=== PATIENT | female | born 1945 | race Caucasian/White ===

== ENCOUNTER 2018-06-11 07:56 | Day surgery (SDC) | payer MEDICARE ==
[~2018-06-11 07:56] MED LIST: DEXAMETHASONE SOD PHOSPHATE 10 MG/ML 1 ML VIAL IV ONE; HYDROmorphone 0.5 MG/0.5 ML SYRINGE IVP PRN; MIDAZOLAM 2 MG/2 ML VIAL IV PRN; ONDANSETRON 4 MG/2 ML VIAL IVP ONE; ceFAZolin IN SWFI 2 GM/20 ML SYRINGE IVP ONE
[2018-06-11] MEDS ORDERED: LIDOCAINE 1% 20 ML VIAL (10MG/ML) FOR IV START INTRADERMA ONE (09:30)
[2018-06-11] MEDS: LACTATED RINGERS 1,000 ML IV SCH ×2 (09:30→17:00)
[2018-06-11] MEDS ORDERED: MIDAZOLAM (PF) 2 MG/2 ML VIAL IVP ONE (11:15)
--- NOTE | 2018-06-11 11:39 | P.ONQ ---
Anesthesiology Proc Note - PNB - Peripheral Nerve Block Performed Left Adductor Canal Single Time Out Performed: Yes Procedure Start Time: 11:15 Procedure Stop Time: :17 Indication: Acute Post-Operative Pain, Analgesia, Requested by physician Sedation Type: Sedate with meaningful contact maintained Preparation: Sterile Prep Position: Supine Catheter: None Needle Types: On-Q, Touhy Needle Size: 100mm (4") Needle Gauge: 21 Technique: Ultrasound Injectate: Other (see comment) (0.5% bupivacaine with 1:200k epi 15cc) Adjunct: Epinephrine (see comment for dilution ratio) Blood Aspirated: No Pain Paresthesia on Injection Noted: No Resistance on Injection: Normal Events: Uneventful and Well Tolerated
--- NOTE | 2018-06-11 11:40 | P.ONQ ---
Anesthesiology Proc Note - PNB - Peripheral Nerve Block Performed Right Popliteal Single Time Out Performed: Yes Procedure Start Time: :18 Procedure Stop Time: : Indication: Acute Post-Operative Pain, Analgesia, Requested by physician Sedation Type: Sedate with meaningful contact maintained Preparation: Sterile Prep Position: Supine Catheter: None Needle Types: On-Q Needle Size: 50mm (2") Needle Gauge: 21 Technique: Ultrasound Injectate: Other (see comment) (0.5% bupivacaine with 1:200k epi 15cc) Adjunct: Epinephrine (see comment for dilution ratio) Blood Aspirated: No Pain Paresthesia on Injection Noted: No Resistance on Injection: Normal Events: Uneventful and Well Tolerated
--- NOTE | 2018-06-11 12:05 | P.HPOR ---
History of Present Illness H&P Date: 06/11/18 The patient is very pleasant 72-year-old female who presents today for elective left foot surgery after having failed a long course of nonsurgical treatment. Past Medical History Past Medical History: Osteoarthritis (OA), Thyroid Disorder Additional Past Medical History / Comment(s): 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, THYROID IRRADIATION WITH IODINE History of Any Multi-Drug Resistant Organisms: None Reported Past Surgical History: Bladder Surgery, Hysterectomy, Joint Replacement Additional Past Surgical History / Comment(s): RT KNEE REPLACEMENT, FIDE CATARACTS, TOTAL THYROIDECTOMY WITH IRRADIATION WITH IODINE, BLADDER SUSPENSION Past Anesthesia/Blood Transfusion Reactions: No Reported Reaction Smoking Status: Never smoker - Past Family History Sister(s) Family Medical History: Cancer Additional Family Medical History / Comment(s): BRAIN Medications and Allergies Home Medications Medication Instructions Recorded Confirmed Type Gabapentin [Neurontin] 100 mg PO DIRECTED PRN 06/06/18 06/11/18 History Levothyroxine Sodium [Synthroid] 200 mcg PO DAILY 06/06/18 06/11/18 History Multivitamins, Thera [Multivitamin 1 tab PO DAILY 06/06/18 06/06/18 History (formulary)] Allergies Allergy/AdvReac Type Severity Reaction Status Date / Time Sulfa (Sulfonamide Allergy Rash/Hives Verified 06/06/18 09:20 Antibiotics) Physical Examination A focused exam was conducted to the left foot. There is a severe hallux valgus and rigid second hammertoe. Pulses are palpable. The tips of the toe are warm and well perfused with brisk capillary refill. Assessment and Plan Plan: The patient is a very pleasant 73-year-old female who presents today for elective surgery on her foot. She has failed nonsurgical treatment and has requested surgery. She was cleared preoperatively.
[2018-06-11] MEDS ORDERED: NEOSTIGMINE 1 MG/ML 10 ML VIAL ONE (12:11)
[2018-06-11] MEDS ORDERED: LIDOCAINE 1% INJ 10MG/ML (20 ML MDV) ONE (12:11)
[2018-06-11] MEDS ORDERED: BUPIVACAIN-EPI 0.5%-1:200,000 30 ML VIAL ONE (12:11)
[2018-06-11] MEDS ORDERED: ROCURONIUM BROMIDE 10 MG/ML 10 ML VIAL IV ONE (12:11)
[2018-06-11] MEDS ORDERED: PHENYLEPHRINE-0.9% NACL SYG 1 MG/10 ML SYRINGE ONE (12:11)
[2018-06-11] MEDS ORDERED: GLYCOPYRROLATE 0.2 MG/ML 2 ML VIAL ONE (12:11)
[2018-06-11] MEDS ORDERED: MIDAZOLAM 2 MG/2 ML VIAL ONE (12:11)
[2018-06-11] MEDS ORDERED: PROPOFOL 10 MG/ML 20 ML VIAL IV ONE (12:11)
[2018-06-11] MEDS ORDERED: SUCCINYLCHOLINE CHLORIDE 100 MG/5 ML SYR IV ONE (12:11)
[2018-06-11] MEDS ORDERED: ePHEDrine SULFATE/0.9% NACL/PF 50 MG/5 ML SYRINGE IV ONE (12:11)
[2018-06-11] MEDS ORDERED: fentaNYL (PF) 50 MCG/ML 2 ML AMP ONE (12:11)
[2018-06-11] MEDS ORDERED: LACTATED RINGERS 1,000 ML IV ONE (13:16)
--- NOTE | 2018-06-11 14:15 | P.OP ---
Date of Procedure: 06/11/18 Preoperative Diagnosis: 1. Severe left hallux valgus deformity 2. Left rigid second hammertoe and dislocated second MTP joint Postoperative Diagnosis: Same Procedure(s) Performed: 1. Left first MTP arthrodesis 2. Repair of left dislocated second hammertoe with PIP resection arthroplasty, extensor tendon lengthening, and MTP capsulotomy 3. Application of short leg splint by physician, left ankle Anesthesia: BERRY, regional Surgeon: Kadeem De Leon [facility]: Anders Rodriguez Estimated Blood Loss (ml): 10 IV fluids (ml): 1,200 Pathology: none sent Condition: stable Disposition: PACU Indications for Procedure: The patient is very pleasant 73-year-old female with long-standing history of problems with her left foot. She has previously had several surgeries by another surgeon. She presented to see me with a severe left hallux valgus and chronically dislocated second MTP joint and rigid hammertoe. We discussed continued nonsurgical treatment versus surgery. The patient has failed over 6 months of nonsurgical treatment including activity modification, shoewear modification, orthotics, toe splints, and observation. She has requested surgery. We discussed 2 different surgical options. The first being a second toe amputation and the second reconstruction of the foot with a first MTP arthrodesis and correction of the left second hammertoe with the possibility of requiring a shortening metatarsal osteotomy. The patient requested salvage of the toe and reconstruction of the foot. We discussed potential risks and Patient's of surgery including but not limited to risk of anesthesia, superinfection, deep infection, delayed wound healing, some partial necrosis, nonunion of the fusion site, malunion the fusion site, recurrent deformity, chronic pain, chronic swelling, synthetic hardware, DVT, PE, other medical consultations, and possibly loss of life or limb. She threaded her verbal and written consent to go forward with surgery. Description of Procedure: The patient is independent operative holding and the correct left was marked with my initials. I really consent form with the patient and all of her questions were answered. A popliteal and saphenous nerve block was given by anesthesia. The patient was then brought back to the operating room pages position on the or table where general anesthetic and preoperative antibiotics were administered. A tourniquet was applied to the proximal aspect of the left leg. The right leg was secured with tape with foam and tape. The left leg was then prepped and draped in the standard sterile fashion. The leg was elevated, exsanguinated with an Esmarch bandage, and the tourniquet was inflated 250 mmHg. I began by performing a first MTP fusion. A longitudinal incision was made directly over the first MTP joint. The EHL tendon was lengthened with a Z- lengthening procedure to facilitate reduction of the MTP joint. The capsule was incised longitudinally and the joint was circumferentially exposed. A K wire was placed on the central aspect of the first metatarsal head. A concave reamer was used remove the articular cartilage down to subchondral bone. The K wire was withdrawn and the subchondral bone was perforated to facilitate fusion. A K wire was then placed on the central aspect of the proximal phalanx. A convex reamer was then used to remove the articular cartilage down to subchondral bone. The K wire was withdrawn and the subchondral bone was perforated to facilitate fusion. The joint was then irrigated and position for fusion. An acentrically placed K wire was placed across the joint holding it in slight valgus and dorsiflexion. The position of the joint was verified. A nonlocking 3.5 mm lag screw was placed from the base the proximal balance and the metatarsal head. A precontoured dorsal first MTP joint was placed. Nonlocking screws were placed proximally and distally holding the plate down to bone followed by locking screws. Attention was then turned to the second toe. A longitudinal incision was marked out over the dorsal aspect of the second toe. Skin incision was made with a scalpel. Dissection was carried down carefully to the subcu tissue with tenotomy scissors. The long extensor tendon was identified and sharply incised. The MTP capsule was circumferentially exposed. A McGlamry elevator was used to reduce the MTP joint. I was able to reduce the MTP joint with minimal tension by elected not to perform a metatarsal shortening osteotomy. The PIP joint was then exposed and the proximal phalanx was cut at the metaphyseal flare distally. A double-ended 0.0625 K wire was driven through the joint out the tip of the toe, the toe was reduced and the K wire was then driven through the proximal phalanx and across the MTP joint. The toe appeared straight. The wounds were then copiously irrigated and closed in layers. I verified that all instrument, sponge, and sharp counts were correct. A sterile dressing was applied and a well-padded bulky Joseph type splint was placed. The patient was then awoken from her anesthetic, transferred to a gurney, and brought to PACU without the procedure well. Anders Rodriguez PA-C was required as a skilled fitter's assistant for patient positioning, surgical exposure, retraction, placement of hardware, closure of wound, and application of splint. Plan: The patient was given the option of going home with her pain is controlled and she feels safe versus staying overnight for pain control, physical therapy evaluation, and a social work consultation to evaluate on whether or not she safe to go home. She is given strictly nonweightbearing on her operative extremity
[2018-06-11] MEDS ORDERED: HYDROmorphone 0.5 MG/0.5 ML SYRINGE IVP PRN ×3 (14:21)
[2018-06-11] MEDS ORDERED: SENNOSIDES-DOCUSATE SODIUM 1 EACH TAB PO PRN (14:21)
[2018-06-11] MEDS ORDERED: hydrOXYzine PAMOATE 25 MG CAP PO PRN (14:21)
[2018-06-11] MEDS ORDERED: ONDANSETRON 4 MG/2 ML VIAL IVP PRN (14:21)
--- NOTE | 2018-06-11 16:11 | FL ---
Fluoroscopy HISTORY: Open reduction internal fixation 14 seconds fluoroscopy time supplied to the referring clinician. 2 intraoperative C-arm images docum ent the procedure. See dictated report from orthopedic surgery.
[2018-06-11 16:20] VITALS: BMI 30.3
[2018-06-11 16:27] LABS: Basophils % (A) 0 %; Eosinophils % (A) 0 %; HCT 38.9 % (34.0-46.0); HGB 12.4 gm/dL (11.4-16.0); Lymphocytes # (A) 0.3 k/uL (1.0-4.8); Lymphocytes % (A) 5 %; MCH 28.5 pg (25.0-35.0); MCHC 31.9 g/dL (31.0-37.0); MCV 89.3 fL (80.0-100.0); Mean Platelet Volume 7.8; Monocytes # (A) 0.1 k/uL (0-1.0); Monocytes % (A) 2 %; Neutrophils # (A) 5.1 k/uL (1.3-7.7); Neutrophils % (A) 94 %; Platelet Count 177 k/uL (150-450); RBC 4.36 m/uL (3.80-5.40); RDW 13.3 % (11.5-15.5); WBC 5.4 k/uL (3.8-10.6)
[2018-06-11 16:56] VITALS: RESP 16
[2018-06-11] MEDS: ceFAZolin IN SWFI 2 GM/20 ML SYRINGE IVP SCH ×2 (16:59→23:30)
[2018-06-11] MEDS: BENZOCAINE/MENTHOL LOZENG 1 EACH LOZENGE MUCOUS MEM PRN ×2 (17:51→21:07)
[2018-06-11] MEDS: HYDROcodone/APAP 5-325MG 1 EACH TAB PO PRN (17:54)
[2018-06-12] MEDS: LACTATED RINGERS 1,000 ML IV SCH ×2 (00:27→02:30)
[2018-06-12] MEDS: HYDROcodone/APAP 5-325MG 1 EACH TAB PO PRN ×4 (02:42→20:35)
[2018-06-12] MEDS ORDERED: LEVOTHYROXINE 100 MCG TAB ONE (06:05)
[2018-06-12] MEDS: LEVOTHYROXINE 100 MCG TAB PO SCH (06:16)
[2018-06-12] MEDS: ENOXAPARIN 40 MG/0.4 ML SYRINGE SQ SCH (07:06)
[2018-06-12] MEDS: BENZOCAINE/MENTHOL LOZENG 1 EACH LOZENGE MUCOUS MEM PRN ×2 (08:44→19:23)
--- NOTE | 2018-06-12 11:41 | P.PN ---
Subjective Progress Note Date: 06/12/18 This patient is a 73-year-old female that presented to the hospital yesterday 06/13/2018 for elective surgery of severe left hallux valgus and chronically dislocated second MTP joint and rigid hammertoe. She was initially seen in the office by Dr. De Leon, and after 6 months of nonsurgical treatment including activity modification, shoewear modification, orthotics, toe splints, and observation, the patient request surgery. Patient underwent a left 1st MTP arthodesis and repair of left dislocated second hammertoe with PIP resection arthroplasty, extensor tendon lengthening, and MTP capsulotomy yesterday 06/11/[address] De Leon. Patient was admitted for pain control, physical therapy evaluation, and social work consultation to evaluate on whether or not she is safe to go home versus going to rehab. Today is post-operative day #1. The patient states her pain is well-controlled currently. She states she has already been up with physical therapy, and she was assisted to the bathroom, and became dizzy and weak while ambulating, although she feels better now that she is sitting down in the chair. She states she ate breakfast without issue this morning. She denies chest pain, shortness of breat h, dysuria, or vomiting. She denies numbness or tingling of the left lower extremity. She has no new orthopedic complaints currently. Vital signs stable. Objective - Vital Signs Vital signs: Vital Signs Temp 97.6 F 06/12/18 07:00 Pulse 81 06/12/18 07:00 Resp 16 06/12/18 07:10 BP 101/63 06/12/18 07:00 Pulse Ox 95 06/12/18 07:00 Intake & Output 06/11/18 06/12/18 06/12/18 18:59 06:59 18:59 Intake Total 2400 Output Total 5 Balance 2395 Intake: IV 2000 Oral 400 Output: Estimated Blood Loss 5 Other: Voiding Method Bedpan # Voids 1 - Exam On examination, the patient is sitting up in the chair, in no acute distress. The patient is alert and oriented 3. On inspection of the left lower extremity, there is a bulky Joseph splint in place. The splint is clean, dry, and intact. The left toes are warm and well perfused, with capillary refill less than [address] of the left second toe. There is no surrounding erythema, warmth, or drainage from the pin site. The second toe is warm and w ell-perfused with brisk capillary refill. The patient is able to wiggle her left toes without difficulty. Sensation is intact to light touch of the plantar and dorsal left foot and toes. Neurovascular is intact of the left lower extremity. The right calf is soft and nontender. - Labs CBC & Chem 7: 06/11/18 16:00 Labs: Abnormal Lab Results - Last 24 Hours (Table) 06/11/18 Range/Units 16:00 Lymphocytes # 0.3 L (1.0-4.8) k/uL Assessment and Plan Assessment: Post-operative day #1: left 1st MTP arthrodesis, repair of left dislocated second hammertoe with PIP resection arthroplasty, extensor tendon lengthening, and MTP capsulotomy Plan: - Strict nonweightbearing of the left lower extremity. Ice and elevate the left lower extremity to decrease pain and swelling. - Physical therapy/occupational therapy for gait and balance training. - Continue current pain management. - [facility] while she is inpatient for anticoagulation. - 2 doses of postoperative antibiotics complete. - Appreciate medicine consult for medical management. - Anticipate discharge to rehab within next 24-48 hours. Patient discussed with outpatient case manager, prior authorization has been initiated.
[2018-06-12] MEDS ORDERED: HYDROGEN PEROXIDE BOTTLE TOPICAL ONE (11:45)
[2018-06-12] MEDS: MULTIVITAMINS, THERA 1 EACH TAB PO SCH (11:46)
[2018-06-13] MEDS: HYDROcodone/APAP 5-325MG 1 EACH TAB PO PRN ×4 (02:32→23:33)
[2018-06-13] MEDS: LEVOTHYROXINE 100 MCG TAB PO SCH (05:49)
[2018-06-13] MEDS: LACTATED RINGERS 1,000 ML IV SCH ×2 (06:00→07:47)
[2018-06-13] MEDS: FAMOTIDINE 20 MG TAB PO SCH (07:43)
[2018-06-13] MEDS: MULTIVITAMINS, THERA 1 EACH TAB PO SCH (07:43)
[2018-06-13] MEDS: ENOXAPARIN 40 MG/0.4 ML SYRINGE SQ SCH (07:46)
--- NOTE | 2018-06-13 09:36 | P.CONS ---
History of Present Illness - Reason for Consult Consult date: 06/12/18 Medical management - History of Present Illness This is a 73-year-old female patient of Dr. Corley with past mental history of thyroidectomy with resulting hypothyroidism, osteoarthritis, diverticulosis. Patient has been brought in the hospital by Dr. De Leon status post left first MTP arthrodesis for severe left hallux valgus deformity and repair of a left dislocated second hammertoe. Patient states that after the procedure she had quite a bit of weakness, dry mouth and lightheadedness. She states through the night she was on the bedpan every 2 hours and this morning was first and that she has been sitting up. She did have some nausea which has resolved at this point. Patient was able to eat a banana and drinking juice and water this morning. She denies having any chest pain. Her pain to the left foot is a #7 out of 10. Vital signs have been stable, pulse ox is 95% on room air, she has been afebrile. Hemoglobin is 12.4. Patient plans to go to [facility] or [facility] for subacute rehab. Review of Systems All systems: negative Constitutional: Reports fatigue, Reports weakness, Denies chills, Denies fever Eyes: denies blurred vision, denies pain Ears, nose, mouth and throat: Reports vertigo, Denies dysphagia, Denies headache, Denies sore throat Cardiovascular: Denies chest pain, Denies shortness of breath Respiratory: Denies cough, Denies cough with sputum, Denies dyspnea, Denies excessive sputum, Denies hemoptysis, Denies home oxygen, Denies wheezing Gastrointestinal: Reports nausea, Denies abdominal pain, Denies diarrhea, Denies vomiting Genitourinary: Denies dysuria, Denies hematuria Musculoskeletal: Denies frequent falls, Denies myalgias Integumentary: Reports wounds, Denies pruritus, Denies rash Neurological: Denies aphasia, Denies change in mentation, Denies confusion, Denies numbness, Denies seizures, Denies weakness Psychiatric: Denies anxiety, Denies depression Endocrine: Denies fatigue, Denies weight change Past Medical History Past Medical History: Osteoarthritis (OA), Thyroid Disorder Additional Past Medical History / Comment(s): 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, THYROID IRRADIATION WITH IODINE History of Any Multi-Drug Resistant Organisms: None Reported Past Surgical History: Bladder Surgery, Hysterectomy, Joint Replacement Additional Past Surgical History / Comment(s): RT KNEE REPLACEMENT, FIDE CATARACTS, TOTAL THYROIDECTOMY WITH IRRADIATION WITH IODINE, BLADDER SUSPENSION Past Anesthesia/Blood Transfusion Reactions: No Reported Reaction Past Psychological History: No Psychological Hx Reported Smoking Status: Never smoker Past Alcohol Use History: Rare Additional Past Alcohol Use History / Comment(s): Patient is a lifelong nonsmoker, no illicit drug use, rare alcohol use. Patient lives alone with a cat. Past Drug Use History: None Reported - Past Family History Sister(s) Family Medical History: Cancer Additional Family Medical History / Comment(s): Patient has a total of 7 sisters. One from a brain tumor. Another 6 sisters have no major medical problems. Father Additional Family Medical History / Comment(s): Father at age 91 from old age. Mother Additional Family Medical History / Comment(s): Mother at age 89 from old age. Brother(s) Additional Family Medical History / Comment(s): Patient has 2 brothers with no major medical problems. Patient has 2 daughters and 1 son with no major medical problems. Medications and Allergies Home Medications Medication Instructions Recorded Confirmed Type Gabapentin [Neurontin] 100 mg PO DIRECTED PRN 06/06/18 06/11/18 History Levothyroxine Sodium [Synthroid] 200 mcg PO DAILY 06/06/18 06/11/18 History Multivitamins, Thera [Multivitamin 1 tab PO DAILY 06/06/18 06/06/18 History (formulary)] Allergies Allergy/AdvReac Type Severity Reaction Status Date / Time Sulfa (Sulfonamide Allergy Rash/Hives Verified 06/06/18 09:20 Antibiotics) Physical Exam Vitals: Vital Signs Temp Pulse Pulse Pulse Resp BP BP 06/12/18 07:10 16 06/12/18 07:00 97.6 F 81 16 101/63 06/12/18 00:21 97.9 F 86 16 94/54 06/11/18 19:24 97.7 F 96 16 98/60 06/11/18 16:54 92 103/63 06/11/18 16:45 89 114/66 06/11/18 16:30 99 103/63 06/11/18 16:15 110 H 120/78 06/11/18 16:00 98.9 F 102 H 16 110/79 06/11/18 15:30 91 18 104/57 06/11/18 15:15 99 18 104/55 06/11/18 15:00 101 H 18 103/51 06/11/18 14:45 101 H 16 94/48 06/11/18 14:30 85 18 112/56 06/11/18 14:21 98.3 F 97 16 115/57 06/11/18 11:30 86 16 119/67 Pulse Ox 06/12/18 07:10 06/12/18 07:00 95 06/12/18 00:21 95 06/11/18 19:24 93 L 06/11/18 16:54 95 06/11/18 16:45 96 06/11/18 16:30 99 06/11/18 16:15 98 06/11/18 16:00 94 L 06/11/18 15:30 97 06/11/18 15:15 95 06/11/18 15:00 96 06/11/18 14:45 95 06/11/18 14:30 96 06/11/18 14:21 96 06/11/18 11:30 96 Intake and Output 06/11/18 06/12/18 06/12/18 22:59 06:59 14:59 Intake Total 1000 Balance 1000 Intake: IV 600 Oral 400 Other: Voiding Method Bedpan # Voids 1 1 Gen: This is a 73-year-old female. She is sitting in recliner appears to be comfortable and in no acute distress. HEENT: Head is atraumatic, normocephalic. Pupils equal, round. Sclerae is anicteric. NECK: Supple. No JVD. No lymphadenopathy. No thyromegaly. LUNGS: Clear to auscultation. No wheezes or rhonchi. No intercostal retractions. HEART: Regular rate and rhythm. No murmur. ABDOMEN: Soft. Bowel sounds are present. No masses. No tenderness. EXTREMITIES: Left lower extremity has a large splint in place. No breakthrough bleeding or drainage. Capillary refill is immediate. NEUROLOGICAL: Patient is awake, alert and oriented x3. Cranial nerves 2 through 12 are grossly intact. Results CBC & Chem 7: 06/11/18 16:00 Labs: Abnormal Lab Results - Last 24 Hours (Table) 03/06/19 Range/Units 16:00 Lymphocytes # 0.3 L (1.0-4.8) k/uL Assessment and Plan Plan: 1. Status post left first MTP arthrodesis for severe left hallux valgus deformity and repair of a left dislocated second hammertoe. Continue current pain management per orthopedics, continue DVT prophylaxis with Lovenox, PT and OT, incentive spirometry to reduce incidence of atelectasis and hospital- acquired pneumonia. 2. Hypothyroidism. Continue levothyroxine 200 g daily. 3. Diverticulosis, stable. 4. Osteoarthritis, generalized, stable. 5. DVT prophylaxis. Lovenox. 6. GI prophylaxis. Pepcid. Discharge plan: [place] or [facility] [place] once arrangements are completed Impression and plan of care have been directed as dictated by the signing physician. Teresa Franco nurse practitioner acting as scribe for signing physician.
--- NOTE | 2018-06-13 12:22 | P.PN ---
Subjective Progress Note Date: 06/13/18 This patient is a 73-year-old female that presented to the hospital yesterday 06/13/2018 for elective surgery of severe left hallux valgus and chronically dislocated second MTP joint and rigid hammertoe. She was initially seen in the office by Dr. De Leon, and after 6 months of nonsurgical treatment including activity modification, shoewear modification, orthotics, toe splints, and observation, the patient request surgery. Patient underwent a left 1st MTP arthodesis and repair of left dislocated second hammertoe with PIP resection arthroplasty, extensor tendon lengthening, and MTP capsulotomy yesterday 06/11/[address] De Leon. Patient was admitted for pain control, physical therapy evaluation, and social work consultation to evaluate on whether or not she is safe to go home versus going to rehab. Today is post-operative day #2. Patient states her pain is well-controlled. She has been up with therapy today, and states she felt lightheaded and nauseous upon ambulating, which is relieved when she sits back down in chair. Patient states she is remaining non-weight bearing on the left lower extremity. She is tolerating her diet well. She denies vomiting, chest pain, shortness of breath, or abdominal pain. She denies numbness of tingling of left lower extremity. She has no new orthopedic complaints today. Vital signs stable. Objective - Vital Signs Vital signs: Vital Signs Temp 98.7 F 06/13/18 07:05 Pulse 81 06/13/18 07:05 Resp 16 06/13/18 07:05 BP 113/61 06/13/18 07:05 Pulse Ox 94 L 06/13/18 07:05 Intake & Output 06/12/18 06/13/18 06/13/18 18:59 06:59 18:59 Intake Total 200 761 118 Balance 200 761 118 Intake: Intake, IV Titration 0 Amount Lactated Ringers 1,000 ml 0 @ 100 mls/hr IV .Q10H [facility] Rx#:[id number] Oral 200 761 118 Other: Voiding Method Bedpan # Voids 2 - Exam On examination, the patient is sitting up in the chair, in no acute distress. The patient is alert and oriented 3. On inspection of the left lower extremity, there is a bulky Joseph splint in place. The splint is clean, dry, and intact. The left toes are warm and well-perfused, with capillary refill less than [address] of the left second toe. There is no surrounding erythema, warmth, or drainage from the pin site. The second toe is warm and well-perfused with brisk capillary refill. The patient is able to wiggle her left toes without difficulty. Sensation is intact to light touch of the plantar and dorsal left foot and toes. Neurovascular is intact of the left lower extremity. The right calf is soft and nontender. - Labs CBC & Chem 7: 06/11/18 16:00 Assessment and Plan Assessment: Post-operative day #2: left 1st MTP arthrodesis, repair of left dislocated second hammertoe with PIP resection arthroplasty, extensor tendon lengthening, and MTP capsulotomy Plan: - Strict nonweightbearing of the left lower extremity. Ice and elevate the left lower extremity to decrease pain and swelling. - Physical therapy/occupational therapy for gait and balance training. - Continue current pain management. - Lovenox while she is inpatient for anticoagulation, aspirin on discharge. - 2 doses of postoperative antibiotics complete. - Appreciate medicine consult for medical management. - Anticipate discharge to rehab within next 24-48 hours. Patient discussed with case hardener, prior authorization has been initiated.
--- NOTE | 2018-06-13 13:55 | P.PN ---
Subjective Progress Note Date: 06/13/18 This is a 73-year-old female patient of Dr. Corley with past mental history of thyroidectomy with resulting hypothyroidism, osteoarthritis, diverticulosis. Patient has been brought in the hospital by Dr. De Leon status post left first MTP arthrodesis for severe left hallux valgus deformity and repair of a left dislocated second hammertoe. Patient states that after the procedure she had quite a bit of weakness, dry mouth and lightheadedness. She states through the night she was on the bedpan every 2 hours and this morning was first and that she has been sitting up. She did have some nausea which has resolved at this point. Patient was able to eat a banana and drinking juice and water this morning. She denies having any chest pain. Her pain to the left foot is a #7 out of 10. Vital signs have been stable, pulse ox is 95% on room air, she has been afebrile. Hemoglobin is 12.4. Patient plans to go to [facility] or [facility] for subacute rehab. 06/13: Patient states that her pain is better controlled today. She has had no nausea or vomiting, no chest pain or shortness of breath. Medication reconciliation has been reviewed. Patient is hoping to go to either [facility] or [facility] today. [facility] has accepted the patient and we are waiting for insurance authorization. Patient is cleared for medicine for discharge. Review of Systems Constitutional: Reports fatigue, Reports weakness, Denies chills, Denies fever Eyes: denies blurred vision, denies pain Ears, nose, mouth and throat: Reports vertigo, Denies dysphagia, Denies headache, Denies sore throat Cardiovascular: Denies chest pain, Denies shortness of breath Respiratory: Denies cough, Denies cough with sputum, Denies dyspnea, Denies excessive sputum, Denies hemoptysis, Denies home oxygen, Denies wheezing Gastrointestinal: Reports nausea, Denies abdominal pain, Denies diarrhea, Denies vomiting Genitourinary: Denies dysuria, Denies hematuria Musculoskeletal: Denies frequent falls, Denies myalgias Integumentary: Reports wounds, Denies pruritus, Denies rash Neurological: Denies aphasia, Denies change in mentation, Denies confusion, De nies numbness, Denies seizures, Denies weakness Psychiatric: Denies anxiety, Denies depression Endocrine: Denies fatigue, Denies weight change Objective - Vital Signs Vital signs: Vital Signs Temp 98.7 F 06/13/18 07:05 Pulse 81 06/13/18 07:05 Resp 16 06/13/18 07:05 BP 113/61 06/13/18 07:05 Pulse Ox 94 L 06/13/18 07:05 Intake & Output 06/12/18 06/13/18 06/13/18 18:59 06:59 18:59 Intake Total 200 761 118 Balance 200 761 118 Intake: Intake, IV Titration 0 Amount Lactated Ringers 1,000 ml 0 @ 100 mls/hr IV .Q10H JESUS Rx#:[id number] Oral 200 761 118 Other: Voiding Method Bedpan # Voids 2 - Exam Gen: This is a 73-year-old female. She is sitting in recliner appears to be comfortable and in no acute distress. No respiratory distress noted. HEENT: Head is atraumatic, normocephalic. Pupils equal, round. Sclerae is anicteric. NECK: Supple. No JVD. No lymphadenopathy. No thyromegaly. LUNGS: Clear to auscultation. No wheezes or rhonchi. No intercostal retractions. HEART: Regular rate and rhythm. No murmur. ABDOMEN: Soft. Bowel sounds are present. No masses. No tenderness. EXTREMITIES: Left lower extremity has a large splint in place. No breakthrough bleeding or drainage. Capillary refill is immediate. NEUROLOGICAL: Patient is awake, alert and oriented x3. Cranial nerves 2 through 12 are grossly intact. - Labs CBC & Chem 7: 06/11/18 16:00 Assessment and Plan Plan: 1. Status post left first MTP arthrodesis for severe left hallux valgus def ormity and repair of a left dislocated second hammertoe. Continue current pain management per orthopedics, continue DVT prophylaxis with Lovenox, PT and OT, incentive spirometry to reduce incidence of atelectasis and hospital-acquired pneumonia. 2. Hypothyroidism. Continue levothyroxine 200 g daily. 3. Diverticulosis, stable. 4. Osteoarthritis, generalized, stable. 5. DVT prophylaxis. Lovenox. 6. GI prophylaxis. Pepcid. Discharge plan: [facility] today once insurance authorization has been obtained Impression and plan of care have been directed as dictated by the signing physician. Teresa Franco nurse practitioner acting as scribe for signing physician.
[2018-06-14] MEDS: LEVOTHYROXINE 100 MCG TAB PO SCH (06:35)
[2018-06-14 07:42] VITALS: BP 159/88; PULSE 75; TEMP 98.4
[2018-06-14] MEDS: ENOXAPARIN 40 MG/0.4 ML SYRINGE SQ SCH (08:46)
[2018-06-14] MEDS: MULTIVITAMINS, THERA 1 EACH TAB PO SCH (08:47)
[2018-06-14] MEDS: FAMOTIDINE 20 MG TAB PO SCH (08:47)
[2018-06-14] MEDS: HYDROcodone/APAP 5-325MG 1 EACH TAB PO PRN (09:09)
--- NOTE | 2018-06-14 09:23 | P.DS ---
Providers Expected date of discharge: 06/14/18 Attending physician: Kadeem De Leon Consults: 06/11/18 14:27 Consult Physician Routine Consulting Provider: Gary Corley Reason/Comments: Medical management Do you want consulting provider notified?: Yes Primary care physician: Gary Corley - Discharge Diagnosis(es) (1) Hallux valgus of left foot Status: Acute Hospital Course: This patient is a 73-year-old female that presented to the hospital yesterday 06/13/2018 for elective surgery of severe left hallux valgus and chronically dislocated second MTP joint and rigid hammertoe. She was initially seen in the office by Dr. De Leon, and after 6 months of nonsurgical treatment including activity modification, shoewear modification, orthotics, toe splints, and observation, the patient request surgery. Patient underwent a left 1st MTP arthodesis and repair of left dislocated second hammertoe with PIP resection arthroplasty, extensor tendon lengthening, and MTP capsulotomy yesterday 06/11/[address] De Leon. Patient was admitted for pain control, physical therapy evaluation, and social work consultation to evaluate on whether or not she is safe to go home versus going to rehab. The patient is doing well on postoperative day #3. She is awaiting rehab transfer today. She has no new complaints or concerns. Pin site looks good with no sign of infection. Postoperative splint in place. Patient may be discharged to inpatient rehab today. Please see med rec for accurate list of home medications. Plan - Discharge Summary Discharge Rx Participant: Yes New Discharge Prescriptions: New Aspirin 325 mg PO DAILY #14 tab Docusate [Colace] 100 mg PO BID #60 capsule Hydrocodone/Acetaminophen [[place] 5-325] 1 tab PO Q6HR PRN #40 tab PRN Reason: Pain Discontinued Gabapentin [Neurontin] 100 mg PO DIRECTED PRN PRN Reason: Pain No Action Multivitamins, Thera [Multivitamin (formulary)] 1 tab PO DAILY Levothyroxine Sodium [Synthroid] 200 mcg PO DAILY Discharge Medication List Levothyroxine Sodium [Synthroid] 200 mcg PO DAILY 06/06/18 [History] Multivitamins, Thera [Multivitamin (formulary)] 1 tab PO DAILY 06/06/18 [History] Aspirin 325 mg PO DAILY #14 tab 06/13/18 [Rx] Docusate [Colace] 100 mg PO BID #60 capsule 06/13/18 [Rx] Hydrocodone/Acetaminophen [[place] 5-325] 1 tab PO Q6HR PRN #40 tab 06/13/18 [Rx] Follow up Appointment(s)/Referral(s): Gary Corley MD [Primary Care Provider] - 1 Week (after discharge from ECF ) Hannah Freeman, [NON-STAFF] - As Needed Kadeem De Leon MD [Medical Doctor] - 06/26/18 2:20 pm Activity/Diet/Wound Care/Special Instructions: -Strict non-weight bearing on your operative leg. Do not remove your splint; Keep splint clean, dry, and intact -Use crutches, knee scooter, or a walker to ambulate after surgery. -Elevate and ice operative leg to help reduce swelling and control pain. -Take pain medications as prescribed. Take Colace as a stool softener. Take aspirin as prescribed for blood clot prevention. -Follow-up appointment with Dr. De Leon in the office in 2 weeks. -Call the office with any questions or concerns, Discharge Disposition: TRANSFER TO SNF/ECF
--- NOTE | 2018-06-14 13:08 | P.PN ---
Subjective Progress Note Date: 06/14/18 This is a 73-year-old female patient of Dr. Corley with past mental history of thyroidectomy with resulting hypothyroidism, osteoarthritis, diverticulosis. Patient has been brought in the hospital by Dr. De Leon status post left first MTP arthrodesis for severe left hallux valgus deformity and repair of a left dislocated second hammertoe. Patient states that after the procedure she had quite a bit of weakness, dry mouth and lightheadedness. She states through the night she was on the bedpan every 2 hours and this morning was first and that she has been sitting up. She did have some nausea which has resolved at this point. Patient was able to eat a banana and drinking juice and water this morning. She denies having any chest pain. Her pain to the left foot is a #7 out of 10. Vital signs have been stable, pulse ox is 95% on room air, she has been afebrile. Hemoglobin is 12.4. Patient plans to go to [facility] or [facility] for subacute rehab. 06/13: Patient states that her pain is better controlled today. She has had no nausea or vomiting, no chest pain or shortness of breath. Medication reconciliation has been reviewed. Patient is hoping to go to either [facility] or [facility] today. [facility] has accepted the patient and we are waiting for insurance authorization. Patient is cleared for medicine for discharge. 06/14: Patient has been prepared for discharge this morning to rehab. Patient is waiting for her family member to give her a ride. She denies any new complaints. No chest pain or shortness of breath. Systolic remains in place to the left foot. Capillary refill immediate. Medication reconciliation reviewed and patient will be placed on aspirin 325 mg twice daily for DVT prophylaxis at the [facility] for 14 days. Review of Systems Constitutional: Reports fatigue, Reports weakness, Denies chills, Denies fever Eyes: denies blurred vision, denies pain Ears, nose, mouth and throat: Reports vertigo, Denies dysphagia, Denies headache, Denies sore throat Cardiovascular: Denies chest pain, Denies shortness of breath Respiratory: Denies cough, Denies cough with sputum, Denies dyspnea, Denies excessive sputum, Denies hemoptysis, Denies home oxygen, Denies wheezing Gastrointestinal: Denies nausea, Denies abdominal pain, Denies diarrhea, Denies vomiting Genitourinary: Denies dysuria, Denies hematuria Musculoskeletal: Denies frequent falls, Denies myalgias Integumentary: Reports wounds, Denies pruritus, Denies rash Neurological: Denies aphasia, Denies change in mentation, Denies confusion, Denies numbness, Denies seizures, Denies weakness Psychiatric: Denies anxiety, Denies depression Endocrine: Denies fatigue, Denies weight change Objective - Vital Signs Vital signs: Vital Signs Temp 98.4 F 06/14/18 07:00 Pulse 75 06/14/18 07:00 Resp 16 06/14/18 07:00 BP 159/88 06/14/18 07:00 Pulse Ox 94 L 06/14/18 07:00 Intake & Output 06/13/18 06/14/18 06/14/18 18:59 06:59 18:59 Intake Total 568 320 Balance 568 320 Intake: Oral 568 320 Other: # Voids 2 1 - Exam Gen: This is a 73-year-old female. She is sitting in bed appears to be comfortable and in no acute distress. No respiratory distress noted. HEENT: Head is atraumatic, normocephalic. Pupils equal, round. Sclerae is anicteric. NECK: Supple. No JVD. No lymphadenopathy. No thyromegaly. LUNGS: Clear to auscultation. No wheezes or rhonchi. No intercostal retractions. HEART: Regular rate and rhythm. No murmur. ABDOMEN: Soft. Bowel sounds are present. No masses. No tenderness. EXTREMITIES: Left lower extremity has a large splint in place. No breakthrough bleeding or drainage. Capillary refill is immediate. NEUROLOGICAL: Patient is awake, alert and oriented x3. Cranial nerves 2 through 12 are grossly intact. - Labs CBC & Chem 7: 06/11/18 16:00 Assessment and Plan Plan: 1. Status post left first MTP arthrodesis for severe left hallux valgus deformity and repair of a left dislocated second hammertoe. Continue current pain management per orthopedics, continue DVT prophylaxis with Lovenox, PT and OT, incentive spirometry to reduce incidence of atelectasis and hospital- acquired pneumonia. 2. Hypothyroidism. Continue levothyroxine 200 g daily. 3. Diverticulosis, stable. 4. Osteoarthritis, generalized, stable. 5. DVT prophylaxis. Lovenox. 6. GI prophylaxis. Pepcid. Discharge plan: Subacute rehab today Impression and plan of care have been directed as dictated by the signing ph ysician. Teresa Franco nurse practitioner acting as scribe for signing physician.
== END 2018-06-14 11:39 ==
LOC: OR 07:56 → 4SSUR 15:26 → OR 06-14 11:39
PROVIDERS: ATTEND Orthopaedic Surgery
DX: M20.12 Hallux valgus (acquired), left foot (principal); M20.42 Other hammer toe(s) (acquired), left foot; M24.478 Recurrent dislocation, left toe(s); E89.0 Postprocedural hypothyroidism; M15.9 Polyosteoarthritis, unspecified; K57.90 Diverticulosis of intestine, part unspecified, without perforation or abscess without bleeding; M26.609 Unspecified temporomandibular joint disorder, unspecified side; Z79.890 Hormone replacement therapy; Z88.2 Allergy status to sulfonamides; Z79.899 Other long term (current) drug therapy
CPT/HCPCS: 28750; 28285; 28270; 97161; 97166; 64450; 85025; 73620; C1713; J2250 ×2; J1100; J2710; J2405; J2001; J1650 ×3; J3010; J2370; J0330; J2704; J1170; J0690

== ENCOUNTER → 2018-08-11 | Outpatient (CLI) | payer MEDICARE ==
--- NOTE | 2018-08-11 16:25 | US ---
EXAMINATION TYPE: US venous doppler duplex LE LT DATE OF EXAM: 08/11/2018 4:11 PM COMPARISON: NONE CLINICAL HISTORY: Pain Swelling M79.672. SIDE PERFORMED: Left TECHNIQUE: The lower extremity deep venous system is examined utilizing real time linear array sonog uday with graded compression, doppler sonography and color-flow sonography. VESSELS IMAGED: External Iliac Vein (EIV) Common Femoral Vein Deep Femoral Vein Greater Saphenous Vein * Femoral Vein Popliteal Vein Small Saphenous Vein * Proximal Calf Veins (* superficial vessels) Left Leg: Negative for DVT Grayscale, color doppler, spectral doppler imaging performed of the deep veins of the left lower ext remity. There is normal flow, compressibility, vascular waveforms. IMPRESSION: No ultrasound evidence for acute DVT in the left lower extremity.
== END | disposition home or self-care (01) ==
LOC: RADUSWWP 15:25
PROVIDERS: ATTEND Orthopaedic Surgery
DX: I80.9 Phlebitis and thrombophlebitis of unspecified site (principal)

== ENCOUNTER 2018-10-31 15:34 | Inpatient (IN) | payer MEDICARE ==
[2018-10-31] MEDS ORDERED: ASPIRIN 81 MG PO STA (16:07)
[2018-10-31] MEDS ORDERED: DILTIAZEM DRIP BOLUS FROM BAG 1 MG SOLN IV ONE (16:07)
[2018-10-31] MEDS ORDERED: SODIUM CHLORIDE 0.9% 1,000 ML IV STA (16:07)
[2018-10-31] MEDS ORDERED: HEPARIN SODIUM,PORCINE 10,000 UNIT/ML 1 ML VIAL IV STA (16:07)
--- NOTE | 2018-10-31 16:12 | ED ---
Arrhythmia/Palpitations HPI - General Chief Complaint: Arrhythmia/Palpitations Stated Complaint: A-Fib sent by PCP Time Seen by Provider: 10/31/18 15:59 Source: patient, RN notes reviewed Mode of arrival: ambulatory Limitations: no limitations - History of Present Illness Initial Comments: This is a 73-year-old female with no prior history of cardiac disease who was at her doctor's office today for a checkup when she was found to be in atrial fibrillation with a rapid ventricular response. Patient does states she occasionally has palpitations has had some exertional dyspnea and feeling tired recently no overt chest pain that she states she does occasionally have right- sided anterior neck discomfort. No fevers chills nausea vomiting sweats no new medications no other modifying factors at this time MD Complaint: rapid heart beat - Related Data Home Medications Medication Instructions Recorded Confirmed Levothyroxine Sodium [Synthroid] 200 mcg PO SUMOTUTHSA 06/06/18 10/31/18 Multivitamins, Thera [Multivitamin 1 tab PO DAILY 06/06/18 10/31/18 (formulary)] Aspirin EC [Ecotrin Low Dose] 81 mg PO DAILY 10/31/18 10/31/18 Calcium Carbonate [Calcium] 600 mg PO DAILY 10/31/18 10/31/18 Cholecalciferol [Vitamin D3 (25 1,000 unit PO DAILY 10/31/18 10/31/18 Mcg = 1000 Iu)] Fish Oil/Dha/Epa [Fish Oil 1,200 1 cap PO DAILY 10/31/18 10/31/18 mg Fish Oil] Levothyroxine Sodium [Synthroid] 100 mcg PO WEFR 10/31/18 10/31/18 Vitamin A 8,000 unit PO DAILY 10/31/18 10/31/18 Vitamin B Complex 1 cap PO DAILY 10/31/18 10/31/18 Allergies Allergy/AdvReac Type Severity Reaction Status Date / Time Sulfa (Sulfonamide Allergy Rash/Hives Verified 10/31/18 17:01 Antibiotics) Review of Systems ROS Statement: Those systems with pertinent positive or pertinent negative responses have been documented in the HPI. ROS Other: All systems not noted in ROS Statement are negative. Past Medical History Past Medical History: Osteoarthritis (OA), Thyroid Disorder Additional Past Medical History / Comment(s): 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, THYROID IRRADIATION WITH IODINE History of Any Multi-Drug Resistant Organisms: None Reported Past Surgical History: Bladder Surgery, Hysterectomy, Joint Replacement, Orthopedic Surgery Additional Past Surgical History / Comment(s): RT KNEE REPLACEMENT, FIDE CATARACTS, TOTAL THYROIDECTOMY WITH IRRADIATION WITH IODINE, BLADDER SUSPENSION Past Anesthesia/Blood Transfusion Reactions: No Reported Reaction Past Psychological History: No Psychological Hx Reported Smoking Status: Never smoker Past Alcohol Use History: Rare Past Drug Use History: None Reported - Past Family History Sister(s) Family Medical History: Cancer Additional Family Medical History / Comment(s): Patient has a total of 7 sisters. One from a brain tumor. Another 6 sisters have no major medical problems. Father Additional Family Medical History / Comment(s): Father at age 91 from old age. Mother Additional Family Medical History / Comment(s): Mother at age 89 from old age. Brother(s) Additional Family Medical History / Comment(s): Patient has 2 brothers with no major medical problems. Patient has 2 daughters and 1 son with no major medical problems. General Exam - General Exam Comments Initial Comments: This is a well-developed well-nourished awake alert oriented 3 female Limitations: no limitations General appearance: alert, in no apparent distress Head exam: Present: atraumatic, normocephalic, normal inspection Eye exam: Present: normal appearance, PERRL, EOMI. Absent: scleral icterus, conjunctival injection, periorbital swelling ENT exam: Present: normal exam, mucous membranes moist Neck exam: Present: normal inspection, full ROM, other (Heractivity[employer]ruits). Absent: tenderness, meningismus, lymphadenopathy Respiratory exam: Present: normal lung sounds bilaterally. Absent: respiratory distress, wheezes, rales, rhonchi, stridor Cardiovascular Exam: Present: tachycardia, irregular rhythm. Absent: systolic murmur, diastolic murmur, rubs, gallop, clicks GI/Abdominal exam: Present: soft, normal bowel sounds. Absent: distended, tenderness, guarding, rebound, rigid Extremities exam: Present: normal inspection, full ROM, normal capillary refill, pedal edema (Trace lower extremity edema). Absent: tenderness, joint swelling, calf tenderness Back exam: Present: normal inspection Neurological exam: Present: alert, oriented X3, CN II-XII intact Psychiatric exam: Present: normal affect, normal mood Skin exam: Present: warm, dry, intact, normal color. Absent: rash Course Vital Signs 10/31/18 10/31/18 10/31/18 15:41 16:05 16:10 Temperature 98.1 F Pulse Rate 168 H 152 H Respiratory 18 10 L Rate Blood Pressure 153/73 141/88 O2 Sat by Pulse 97 93 L 93 L Oximetry 10/31/18 10/31/18 10/31/18 16:20 16:30 16:40 Temperature Pulse Rate 160 H 165 H Respiratory 16 17 18 Rate Blood Pressure 94/78 94/78 62/41 O2 Sat by Pulse 94 L 94 L 97 Oximetry 10/31/18 10/31/18 10/31/18 16:54 16:55 17:00 Temperature Pulse Rate 89 85 89 Respiratory 18 16 16 Rate Blood Pressure 79/59 105/59 105/59 O2 Sat by Pulse 97 95 95 Oximetry 10/31/18 10/31/18 10/31/18 17:10 17:20 17:30 Temperature Pulse Rate 91 87 92 Respiratory 15 18 Rate Blood Pressure 98/54 86/44 O2 Sat by Pulse 99 Oximetry 10/31/18 10/31/18 10/31/18 17:40 17:50 18:00 Temperature Pulse Rate 90 93 85 Respiratory 17 20 19 Rate Blood Pressure 142/104 131/71 130/87 O2 Sat by Pulse Oximetry 10/31/18 19:00 Temperature 98.6 F Pulse Rate 80 Respiratory 18 Rate Blood Pressure 108/68 O2 Sat by Pulse Oximetry - Reevaluation(s) Reevaluation #1: 10/31/18 19:50 Reevaluation patient finds that she has converted to a sinus rhythm the rate was 76. 136 QRS duration 76 QT since QTC 364/49 her blood pressure is also improved after IV fluids. EKG Findings - EKG Results: EKG: interpreted by ERMD (Atrial fibrillation with a rapid ventricular response rate of [address]-T wave configuration QRS 70 QT since QTC to 78/435 this is correlate with 1 presented from the office which also showed A. fib with RVR a rate of 145.) Medical Decision Making - Medical Decision Making Patient did respond to IV fluids also IV Cardizem. She is demonstrated evidence on lab work of hypothyroidism. Due to the presenting symptoms she'll be admitted case is discussed with Dr. Dr. Garza - Lab Data Result diagrams: 10/31/18 16:30 10/31/18 16:30 Lab Results 10/31/18 10/31/18 10/31/18 Range/Units 16:30 16:30 16:30 WBC 6.1 (3.8-10.6) k/uL RBC 5.22 (3.80-5.40) m/uL Hgb 14.3 (11.4-16.0) gm/dL Hct 45.4 (34.0-46.0) % MCV 87.0 (80.0-100.0) fL MCH 27.3 (25.0-35.0) pg MCHC 31.4 (31.0-37.0) g/dL RDW 13.4 (11.5-15.5) % Plt Count 213 (150-450) k/uL Neutrophils % 78 % Lymphocytes % 12 % Monocytes % 5 % Eosinophils % 3 % Basophils % 0 % Neutrophils # 4.8 (1.3-7.7) k/uL Lymphocytes # 0.7 L (1.0-4.8) k/uL Monocytes # 0.3 (0-1.0) k/uL Eosinophils # 0.2 (0-0.7) k/uL Basophils # 0.0 (0-0.2) k/uL PT 9.4 (9.0-12.0) sec INR 0.9 (<1.2) APTT 23.7 (22.0-30.0) sec D-Dimer 0.45 (<0.60) mg/L FEU Sodium 140 (137-145) mmol/L Potassium 4.4 (3.5-5.1) mmol/L Chloride 108 H (98-107) mmol/L Carbon Dioxide 23 (22-30) mmol/L Anion Gap 9 mmol/L BUN 15 (7-17) mg/dL Creatinine 0.50 L (0.52-1.04) mg/dL Est GFR (CKD-EPI)AfAm >90 (>60 ml/min/1.73 sqM) Est GFR (CKD-EPI)NonAf >90 (>60 ml/min/1.73 sqM) Glucose 117 H (74-99) mg/dL Calcium 9.4 (8.4-10.2) mg/dL Magnesium 2.1 (1.6-2.3) mg/dL Total Bilirubin 0.5 (0.2-1.3) mg/dL AST 25 (14-36) U/L ALT 20 (9-52) U/L Alkaline Phosphatase 73 (38-126) U/L Creatine Kinase 47 (30-135) U/L Troponin I (0.000-0.034) ng/mL NT-Pro-B Natriuret Pep pg/mL Total Protein 6.7 (6.3-8.2) g/dL Albumin 4.1 (3.5-5.0) g/dL TSH 0.192 L (0.465-4.680) mIU/L 10/31/18 10/31/18 Range/Units 16:30 16:30 WBC (3.8-10.6) k/uL RBC (3.80-5.40) m/uL Hgb (11.4-16.0) gm/dL Hct (34.0-46.0) % MCV (80.0-100.0) fL MCH (25.0-35.0) pg MCHC (31.0-37.0) g/dL RDW (11.5-15.5) % Plt Count (150-450) k/uL Neutrophils % % Lymphocytes % % Monocytes % % Eosinophils % % Basophils % % Neutrophils # (1.3-7.7) k/uL Lymphocytes # (1.0-4.8) k/uL Monocytes # (0-1.0) k/uL Eosinophils # (0-0.7) k/uL Basophils # (0-0.2) k/uL PT (9.0-12.0) sec INR (<1.2) APTT (22.0-30.0) sec D-Dimer (<0.60) mg/L FEU Sodium (137-145) mmol/L Potassium (3.5-5.1) mmol/L Chloride (98-107) mmol/L Carbon Dioxide (22-30) mmol/L Anion Gap mmol/L BUN (7-17) mg/dL Creatinine (0.52-1.04) mg/dL Est GFR (CKD-EPI)AfAm (>60 ml/min/1.73 sqM) Est GFR (CKD-EPI)NonAf (>60 ml/min/1.73 sqM) Glucose (74-99) mg/dL Calcium (8.4-10.2) mg/dL Magnesium (1.6-2.3) mg/dL Total Bilirubin (0.2-1.3) mg/dL AST (14-36) U/L ALT (9-52) U/L Alkaline Phosphatase (38-126) U/L Creatine Kinase (30-135) U/L Troponin I <0.012 (0.000-0.034) ng/mL NT-Pro-B Natriuret Pep 265 pg/mL Total Protein (6.3-8.2) g/dL Albumin (3.5-5.0) g/dL TSH (0.465-4.680) mIU/L - Radiology Data Radiology results: report reviewed (I did review the imaging and report no acute findings.), image reviewed Critical Care Time Critical Care Time: Yes Critical Care Time: 31 minutes of critical care time which was initial presentation with history physical labs x-rays several reevaluation patient responsive therapy discuss with the patient discussed with the main physician admission orders and documentation of the above Disposition Clinical Impression: Rapid atrial fibrillation, Hypotensive episode, Dehydration Disposition: ADMITTED IP TO THIS [facility] Condition: Stable Referrals: Gary Corley MD [Primary Care Provider] - 1-2 days
[2018-10-31] MEDS ORDERED: HEPARIN SOD,PORK IN 0.45% NACL 25,000 UNIT in 0.45% NACL 1 250ML.BAG IV SCH ×2 (16:15→22:15)
[2018-10-31] MEDS ORDERED: DILTIAZEM 125 MG in SODIUM CHLORIDE 0.9% 100 ML IV SCH (16:30)
[2018-10-31 16:40] LABS: Basophils % (A) 0 %; Eosinophils # (A) 0.2 k/uL (0-0.7); Eosinophils % (A) 3 %; HCT 45.4 % (34.0-46.0); HGB 14.3 gm/dL (11.4-16.0); Lymphocytes # (A) 0.7 k/uL (1.0-4.8); Lymphocytes % (A) 12 %; MCH 27.3 pg (25.0-35.0); MCHC 31.4 g/dL (31.0-37.0); Mean Platelet Volume 7.7; Monocytes # (A) 0.3 k/uL (0-1.0); Monocytes % (A) 5 %; Neutrophils # (A) 4.8 k/uL (1.3-7.7); Neutrophils % (A) 78 %; Platelet Count 213 k/uL (150-450); RBC 5.22 m/uL (3.80-5.40); RDW 13.4 % (11.5-15.5); WBC 6.1 k/uL (3.8-10.6)
[2018-10-31 16:56] LABS: D-Dimer 0.45 mg/L FEU (<0.60); INR 0.9 (<1.2); Partial Thromboplastin Time 23.7 sec (22.0-30.0); Prothrombin Time 9.4 sec (9.0-12.0)
[2018-10-31 16:59] LABS: ALT 20 U/L (9-52); AST 25 U/L (14-36); African American GFR (CKD) >90 (>60 ml/min/1.73 sqM); Albumin 4.1 g/dL (3.5-5.0); Alkaline Phosphatase 73 U/L (38-126); Anion Gap 9 mmol/L; Blood Urea Nitrogen 15 mg/dL (7-17); Calcium 9.4 mg/dL (8.4-10.2); Carbon Dioxide 23 mmol/L (22-30); Chloride 108 mmol/L (98-107); Creatine Kinase 47 U/L (30-135); Glucose 117 mg/dL (74-99); Magnesium 2.1 mg/dL (1.6-2.3); Potassium 4.4 mmol/L (3.5-5.1); Sodium 140 mmol/L (137-145); Total Bilirubin 0.5 mg/dL (0.2-1.3); Total Protein 6.7 g/dL (6.3-8.2)
--- NOTE | 2018-10-31 17:37 | XR ---
EXAMINATION: XR chest 2V DATE AND TIME: 10/31/2018 5:10 PM CLINICAL INDICATION: PHH; dysrhythmia TECHNIQUE: Departmental protocol COMPARISON: None FINDINGS: The lungs are clear. The pleural spaces are negative. The cardiac silhouette is mild-moderately enlarged, and the aorta is tortuous. The skeletal structures and soft tissues are negative for acute findings. IMPRESSION: 1) No acute radiographic process. 2) Mild-moderately enlarged cardiac silhouette.
[2018-10-31] MEDS ORDERED: NALOXONE 0.4 MG/ML 1 ML VIAL IV PRN (19:53)
[2018-10-31] MEDS ORDERED: ATENOLOL 25 MG TAB PO STA (20:04)
[2018-10-31] MEDS: SODIUM CHLORIDE 0.9% 1,000 ML IV SCH (21:03)
[2018-10-31] MEDS: ATENOLOL 25 MG TAB PO SCH (21:08)
[2018-10-31 21:30] VITALS: BMI 30.7
[2018-10-31] MEDS ORDERED: MELATONIN 3 MG TABLET PO PRN (22:01)
[2018-10-31] MEDS ORDERED: ACETAMINOPHEN TAB 325 MG TAB PO PRN (22:02)
[2018-11-01] MEDS ORDERED: HEPARIN SODIUM,PORCINE 5,000 UNIT/ML 1 ML VIAL IV PRN (01:48)
[2018-11-01] MEDS: SODIUM CHLORIDE 0.9% 1,000 ML IV SCH ×2 (06:34→22:05)
[2018-11-01] MEDS: LEVOTHYROXINE 100 MCG TAB PO SCH (06:34)
[2018-11-01] MEDS: CALCIUM CARBONATE 500 MG CHEWABLE PO SCH (08:27)
[2018-11-01] MEDS: ATENOLOL 25 MG TAB PO SCH ×2 (08:28→20:45)
[2018-11-01] MEDS: CHOLECALCIFEROL 1,000 UNIT TAB PO SCH (08:28)
[2018-11-01] MEDS: MULTIVITAMINS, THERA 1 EACH TAB PO SCH (08:28)
--- NOTE | 2018-11-01 08:58 | P.CRDCN ---
History of Present Illness Consult date: 11/01/18 Requesting physician: Gary Corley Consult reason: atrial flutter Chief complaint: Arrhythmia History of present illness: This is a pleasant 73-year-old female with no prior documented history of hypertension, nondiabetic, borderline hyperlipidemia, nonsmoker, who states that she drinks one glass of wine per day, has 2 cups of coffee per day, was at a routine office visit with Dr. Salazar and it was noted that her heart was beating irregular and fast. For this reason the patient was a mid-to the hospital for further evaluation and treatment. According to the patient, she does notice occasionally a fluttering feeling in her chest, her breathing overall has been stable, she denies any dizziness or lightheadedness, no chest discomfort. Her initial EKG on presentation here showed typical atrial flutter with 2 to one conduction, subsequent to that patient did convert to normal sinus rhythm. At the time of my examination this morning she continues to be in a normal sinus rhythm with occasional PACs. Patient has had her thyroid removed in the past and takes medication for this, she also has had surgery on her foot in June on the left foot, and history of right knee replacement 8 years ago. Chest x-ray on presentation here did not reveal any acute radiographic process, mild to moderate enlargement of the cardiac silhouette was noted. Blood pressure on arrival here 150/70 with a heart rate of 170, afebrile, 97% on room air. White blood cell count is normal, hemoglobin 14.3, platelet count 213. D- dimer negative, sodium 140, potassium 4.4, BUN 15 and creatinine 0.5, magnesium 2.1. Troponin 0.012, BNP level 265., TSH level 0.192. At the time of my examination this morning, patient feels well, she continues at this time to be on IV heparin drip. She was given a bolus of IV Cardizem on arrival here. 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 Past Anesthesia/Blood Transfusion Reactions: No Reported Reaction Past Psychological History: No Psychological Hx Reported Smoking Status: Never smoker Past Alcohol Use History: Rare Additional Past Alcohol Use History / Comment(s): Patient is a lifelong nonsmoker, no illicit drug use, rare alcohol use. Patient lives alone with a cat. Past Drug Use History: None Reported - Past Family History Sister(s) Family Medical History: Cancer Additional Family Medical History / Comment(s): Patient has a total of 7 sisters. One from a brain tumor. Another 6 sisters have no major medical problems. Father Additional Family Medical History / Comment(s): Father at age 91 from old age. Mother Additional Family Medical History / Comment(s): Mother at age 89 from old age. Brother(s) Additional Family Medical History / Comment(s): Patient has 2 brothers with no major medical problems. Patient has 2 daughters and 1 son with no major medical problems. Medications and Allergies Home Medications Medication Instructions Recorded Confirmed Type Levothyroxine Sodium [Synthroid] 200 mcg PO SUMOTUTHSA 06/06/18 10/31/18 History Multivitamins, Thera [Multivitamin 1 tab PO DAILY 06/06/18 10/31/18 History (formulary)] Aspirin EC [Ecotrin Low Dose] 81 mg PO DAILY 10/31/18 10/31/18 History Calcium Carbonate [Calcium] 600 mg PO DAILY 10/31/18 10/31/18 History Cholecalciferol [Vitamin D3 (25 1,000 unit PO DAILY 10/31/18 10/31/18 History Mcg = 1000 Iu)] Fish Oil/Dha/Epa [Fish Oil 1,200 1 cap PO DAILY 10/31/18 10/31/18 History mg Fish Oil] Levothyroxine Sodium [Synthroid] 100 mcg PO WEFR 10/31/18 10/31/18 History Vitamin A 8,000 unit PO DAILY 10/31/18 10/31/18 History Vitamin B Complex 1 cap PO DAILY 10/31/18 10/31/18 History Allergies Allergy/AdvReac Type Severity Reaction Status Date / Time Sulfa (Sulfonamide Allergy Rash/Hives Verified 10/31/18 17:01 Antibiotics) Physical Exam Vitals: Vital Signs Temp Pulse Pulse Resp BP BP Pulse Ox 07/27/19 05:47 70 90/57 11/01/18 04:00 70 15 11/01/18 03:27 96/60 11/01/18 03:13 82/43 11/01/18 03:04 89/58 11/01/18 02:58 61 15 76/39 95 10/31/18 23:48 97.8 F 55 L 15 100/57 96 10/31/18 21:09 98.5 F 80 16 123/74 95 10/31/18 20:56 98.2 F 71 16 118/80 98 10/31/18 20:00 78 11 L 119/73 96 10/31/18 19:00 98.6 F 80 18 108/68 10/31/18 18:00 85 19 130/87 10/31/18 17:50 93 20 131/71 10/31/18 17:40 90 17 142/104 10/31/18 17:30 92 18 86/44 10/31/18 17:20 87 15 98/54 99 10/31/18 17:10 91 10/31/18 17:00 89 16 105/59 95 10/31/18 16:55 85 16 105/59 95 10/31/18 16:54 89 18 79/59 97 10/31/18 16:40 165 H 18 62/41 97 10/31/18 16:30 160 H 17 94/78 94 L 10/31/18 16:20 16 94/78 94 L 10/31/18 16:10 152 H 10 L 141/88 93 L 10/31/18 16:05 93 L 10/31/18 16:00 168 H 10/31/18 15:41 98.1 F 168 H 18 153/73 97 Intake and Output 10/31/18 11/01/18 11/01/18 22:59 06:59 14:59 Intake Total 15.392 240 Balance 15.392 240 Intake: Intake, IV Titration 15.392 Amount Heparin Sod,Pork in 0.45% 15.392 NaCl 25,000 unit In 0.45 % NaCl 1 250ml.bag @ 12 UNITS/KG/HR 9.144 mls/hr IV .Q24H [facility] Rx#: [id number] Oral 240 Other: Voiding Method Toilet # Voids 1 Weight 76.204 kg 76.8 kg PHYSICAL EXAMINATION: GENERAL: 73-year-old female in no acute distress at the time of my examination HEENT: Head is atraumatic, normocephalic. Pupils equal, round. Sclera anict ulysses. Conjunctiva are clear. Mucous membranes of the mouth are moist. Neck is supple. There is no elevated jugular venous pressure. No carotid bruit is heard. HEART EXAMINATION: Heart S1, S2 normal. No murmur or gallop heard. CHEST EXAMINATION: Lungs are clear to auscultation and precussion. No chest wall tenderness is noted on palpation or with deep breathing. ABDOMEN: Soft, nontender. Bowel sounds are heard. No organomegaly noted. EXTREMITIES: 2+ peripheral pulses with no evidence of peripheral edema and no calf tenderness noted. NEUROLOGIC patient is awake, alert and oriented 3 . . Results 10/31/18 16:30 10/31/18 16:30 Cardiac Enzymes 10/31/18 10/31/18 Range/Units 16:30 16:30 AST 25 (14-36) U/L Troponin I <0.012 (0.000-0.034) ng/mL Coagulation 10/31/18 10/31/18 11/01/18 Range/Units 16:30 23:42 07:04 PT 9.4 (9.0-12.0) sec APTT 23.7 38.4 H 53.6 H (22.0-30.0) sec CBC 10/31/18 Range/Units 16:30 WBC 6.1 (3.8-10.6) k/uL RBC 5.22 (3.80-5.40) m/uL Hgb 14.3 (11.4-16.0) gm/dL Hct 45.4 (34.0-46.0) % Plt Count 213 (150-450) k/uL Comprehensive Metabolic Panel 10/31/18 Range/Units 16:30 Sodium 140 (137-145) mmol/L Potassium 4.4 (3.5-5.1) mmol/L Chloride 108 H (98-107) mmol/L Carbon Dioxide 23 (22-30) mmol/L BUN 15 (7-17) mg/dL Creatinine 0.50 L (0.52-1.04) mg/dL Glucose 117 H (74-99) mg/dL Calcium 9.4 (8.4-10.2) mg/dL AST 25 (14-36) U/L ALT 20 (9-52) U/L Alkaline Phosphatase 73 (38-126) U/L Total Protein 6.7 (6.3-8.2) g/dL Albumin 4.1 (3.5-5.0) g/dL Current Medications Generic Name Dose Route Start Last Admin Trade Name Freq PRN Reason Stop Dose Admin Acetaminophen 650 mg 10/31/18 22:02 Tylenol Tab PO Q6HR PRN Fever and/ or Pain Atenolol 25 mg 10/31/18 21:00 11/01/18 08:28 Tenormin PO 25 mg BID JESUS Administration Calcium Carbonate/Glycine 500 mg 11/01/18 09:00 11/01/18 08:27 Tums PO 500 mg DAILY JESUS Administration Cholecalciferol 1,000 unit 11/01/18 09:00 11/01/18 08:28 Vitamin D3 (25 Mcg = 1000 Iu) PO 1,000 unit DAILY JESUS Administration Heparin Sodium (Porcine) 0 unit 11/01/18 01:48 Heparin IV PER PROTOCOL PRN Low PTT Protocol Sodium Chloride 1,000 mls @ 80 mls/hr 10/31/18 20:00 11/01/18 06:34 Saline 0.9% IV 80 mls/hr .[id number] JESUS Administration Heparin Sodium/Sodium Chloride 250 mls @ 9.144 mls/hr 10/31/18 22:15 11/01/18 01:22 25,000 unit/ Sodium Chloride IV 15 units/kg/hr .Q24H [facility] 11.431 mls/hr Titration Protocol 12 UNITS/KG/HR Levothyroxine Sodium 200 mcg 11/01/18 06:30 11/01/18 06:34 Synthroid PO 200 mcg SUMOTUTHSA JESUS Administration Levothyroxine Sodium 100 mcg 11/05/18 06:30 Synthroid PO WEFR JESUS Melatonin 6 mg 10/31/18 22:01 Melatonin PO HS PRN Insomnia Multivitamins 1 each 11/01/18 09:00 11/01/18 08:28 Theragran PO 1 each DAILY JESUS Administration Naloxone HCl 0.2 mg 10/31/18 19:53 Narcan IV Q2M PRN Opioid Reversal Intake and Output 10/31/18 11/01/18 11/01/18 22:59 06:59 14:59 Intake Total 15.392 240 Balance 15.392 240 Intake: Intake, IV Titration 15.392 Amount Heparin Sod,Pork in 0.45% 15.392 NaCl 25,000 unit In 0.45 % NaCl 1 250ml.bag @ 12 UNITS/KG/HR 9.144 mls/hr IV .Q24H [facility] Rx#: [id number] Oral 240 Other: Voiding Method Toilet # Voids 1 Weight 76.204 kg 76.8 kg 10/31/18 16:30 10/31/18 16:30 EKG Interpretations (text) Initial EKG on presentation here showed atrial flutter with a rapid ventricular response, subsequent EKG shows a normal sinus rhythm. Assessment and Plan Plan: Assessment and plan #1 typical atrial flutter with 2 to one conduction, currently in normal sinus rhythm #2 history of thyroid being removed several years ago, patient does take Synthroid at home. Current TSH level 0.19. #3 cardiac risk factors negative for hypertension, no diabetes, borderline hyperlipidemia, nonsmoker Plan We will obtain an echo cardiogram with Doppler study. We will also check to see if the patient has coverage for Eliquis, we will start on 5 mg of Eliquis by mouth twice a day and discontinue the IV heparin. Continue beta jamila. Further recommendations to follow. DNP note has been reviewed, I agree with a documented findings and plan of care. Patient was seen and examined.
[2018-11-01] MEDS ORDERED: NON-FORMULARY DRUG (Fish Oil/Dha/Epa [Fish Oil 1,200 Mg Fish Oil] 1 CAP) PO SCH (09:00)
[2018-11-01] MEDS ORDERED: ASPIRIN 81 MG PO SCH (09:00)
[2018-11-01] MEDS: APIXABAN 5 MG TAB PO SCH ×2 (09:32→20:45)
--- NOTE | 2018-11-01 12:06 | ECHOF ---
Referral Reason:Atrial fibrillation MEASUREMENTS -------- HEIGHT: 157.5 cm WEIGHT: 76.7 kg BP: 90/57 RVIDd: 3.0 cm (< 3.3) IVSd: 1.0 cm (0.6 - 1.1) LVIDd: 4.6 cm (3.9 - 5.3) LVPWd: 1.0 cm (0.6 - 1.1) IVSs: 1.7 cm LVIDs: 3.4 cm LVPWs: 1.5 cm LA Diam: 3.5 cm (2.7 - 3.8) LAESV Index (A-L): 27.80 ml/m Ao Diam: 3.2 cm (2.0 - 3.7) AV Cusp: 1.9 cm (1.5 - 2.6) MV EXCURSION: 10.412 mm (> 18.000) MV EF SLOPE: 69 mm/s (70 - 150) EPSS: 0.5 cm MV E Deonte: 0.88 m/s MV DecT: 257 ms MV A Deonte: 1.06 m/s MV E/A Ratio: 0.84 RAP: 5.00 mmHg RVSP: 33.58 mmHg FINDINGS -------- Sinus rhythm. This was a technically adequate study. The left ventricular size is normal. Left ventricular wall thickness is normal. Overall left vent ricular systolic function is normal with, an EF between 60 - 65 %. The right ventricle is normal in size. Normal LA size by volume 22+/-6 ml/m2. The right atrium is normal in size. Interatrial and interventricular septum intact. There is mild aortic valve sclerosis. Mild mitral regurgitation is present. Mild tricuspid regurgitation present. Right ventricular systolic pressure is normal at < 35 mmHg. There is no pulmonic regurgitation present. The aortic root size is normal. IVC Not well visulized. There is no pericardial effusion. CONCLUSIONS -------- 1. Sinus rhythm. 2. This was a technically adequate study. 3. The left ventricular size is normal. 4. Left ventricular wall thickness is normal. 5. Overall left ventricular systolic function is normal with, an EF between 60 - 65 %. 6. The right ventricle is normal in size. 7. Normal LA size by volume 22+/-6 ml/m2. 8. The right atrium is normal in size. 9. Interatrial and interventricular septum intact. 10. There is mild aortic valve sclerosis. 11. Mild mitral regurgitation is present. 12. Mild tricuspid regurgitation present. 13. Right ventricular systolic pressure is normal at < 35 mmHg. 14. There is no pulmonic regurgitation present. 15. The aortic root size is normal. 16. IVC Not well visulized. 17. There is no pericardial effusion. [employer]: Alejandra Bruno RDCS
--- NOTE | 2018-11-01 21:06 | P.HPIM ---
History of Present Illness H&P Date: 11/01/18 Chief Complaint: A flutter noted routine EKG in office This is a 73-year-old pleasant gentleman patient of Dr. Corley. She has underlying history of hypothyroidism with prior thyroidectomy the past, no history off diabetes, nonsmoker, he drinks 1 glass of wine a day and 2 cups of coffee per day, was seen by Dr. Corley for routine physical, and during this examination, EKG showed 2 stools one conduction off atrial flutter, patient denies any chest pain or palpitations, no instigating events including heat exposure, patient denies any lightheadedness or CVA symptoms, she presents to the emergency room with uncontrolled atrial flutter, cardiology was consulted. She had on [facility]11/2018, [facility] first and second digit, by Dr. De Leon, uncomplicated Emergency room, patient arm is in a full flutter, blood pressure 150/70, heart rate of 170, pulse ox 97% on room air, d-dimer negative, sodium 140, potassium 4.4, creatinine 0.5, magnesium 2.1, troponin 0.012, BNP of 265, TSH 0.192 patient was given Cardizem IV, without bolus, patient was hypotensive patient had converted to sinus rhythm and was replaced to initiate metoprolol, and IV heparin. Cardiology is consulted Review of Systems Constitutional: Reports as per HPI, Denies anorexia, Denies chills, Denies chronic headaches, Denies chronic pain, Denies daytime sleepiness, Denies fatigue, Denies fever, Denies lethargy, Denies malaise, Denies night sweats, Denies poor appetite, Denies sweats, Denies weakness, Denies weight gain, Denies weight loss Ears, nose, mouth and throat: Reports as per HPI, Denies ant. neck pain, Denies bleeding gums, Denies dental pain, Denies dysphagia, Denies epistaxis, Denies headache, Denies hoarseness, Denies mouth pain, Denies nasal congestion, Denies nasal discharge, Denies neck fullness/pressure, Denies neck lump, Denies nose pain, Denies odynophagia, Denies post-nasal drip, Denies sinus pain, Denies sinus pressure, Denies swelling in mouth, Denies swelling in throat, Denies sore throat, Denies vertigo, Denies voice changes Cardiovascular: Reports as per HPI, Reports rapid heart beat Respiratory: Reports as per HPI Gastrointestinal: Reports as per HPI Genitourinary: Reports as per HPI Menstruation: Reports as per HPI Musculoskeletal: Reports as per HPI Integumentary: Reports as per HPI, Denies acne, Denies boils, Denies brittle nails, Denies change in hair/nails, Denies color changes, Denies darkening of skin, Denies depigmentation, Denies dryness, Denies foot/leg ulcers, Denies growths, Denies hirsutism, Denies lesions, Denies onychomycosis, Denies pruritus, Denies rash, Denies sores, Denies striae, Denies unusual bruising, Denies wounds Neurological: Reports as per HPI, Denies aphasia, Denies ataxia, Denies balance difficulties, Denies burning pain, Denies change in mentation, Denies change in smell/taste, Denies change in speech, Denies confusion, Denies convulsions, Denies double vision, Denies gait dysfunction, Denies head injury, Denies headaches, Denies hearing difficulties, Denies lack of coordination, Denies loss of vision, Denies memory loss, Denies migraines, Denies motor disturbance, Denies numbness, Denies paralysis, Denies paresthesias, Denies seizures, Denies sensory deficit, Denies spasticity, Denies syncope, Denies tic, Denies tingling, Denies transient paralysis, Denies tremors, Denies vertigo, Denies weakness, Denies visual changes Psychiatric: Reports as per HPI, Denies anhedonia, Denies anxiety, Denies anxiety attacks, Denies change in appetite, Denies change in libido, Denies change in sleep habits, Denies confusion, Denies depression, Denies difficulty concentrating, Denies disorientation, Denies hallucinations, Denies hopelessness, Denies hypersomnia, Denies insomnia, Denies irritability, Denies memory loss, Denies mood swings, Denies paranoia, Denies sadness/tearfulness, Denies sleep disturbances, Denies suicidal ideation Endocrine: Reports as per HPI, Denies cold intolerance, Denies deepening of the voice, Denies excessive sweating, Denies excessive thirst, Denies fatigue, Denies flushing, Denies heat intolerance, Denies high blood sugars, Denies increase in ring/shoe/hat size, Denies low blood sugars, Denies nocturia, Denies palpitations, Denies polydipsia, Denies polyphagia, Denies polyuria, Denies proptosis, Denies recent glucocorticoid use, Denies thyroid mass, Denies weight change Hematologic/Lymphatic: Reports as per HPI, Denies easy bleeding, Denies easy bruising, Denies lymphadenopathy, Denies lymphedema, Denies thrombophilia Allergic/Immunologic: Reports as per HPI, Denies allergic rhinitis, Denies anap hylaxis, Denies angioedema, Denies gluten intolerance, Denies persistent infections, Denies seasonal allergies, Denies urticaria, Denies wheezing Past Medical History Past Medical History: Osteoarthritis (OA), Thyroid Disorder Additional Past Medical History / Comment(s): 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 Past Anesthesia/Blood Transfusion Reactions: No Reported Reaction Past Psychological History: No Psychological Hx Reported Smoking Status: Never smoker Past Alcohol Use History: Rare Additional Past Alcohol Use History / Comment(s): Patient is a lifelong nonsmoke r, no illicit drug use, rare alcohol use. Patient lives alone with a cat. Past Drug Use History: None Reported - Past Family History Sister(s) Family Medical History: Cancer Additional Family Medical History / Comment(s): Patient has a total of 7 sisters. One from a brain tumor. Another 6 sisters have no major medical problems. Father Family Medical History: No Reported History (Old-age 81) Additional Family Medical History / Comment(s): Father at age 91 from old age. Mother Family Medical History: No Reported History (Old age 89) Additional Family Medical History / Comment(s): Mother at age 89 from old age. Brother(s) History Unknown: Yes (Healthy one brother at drowning) Additional Family Medical History / Comment(s): Patient has 2 brothers with no major medical problems. Patient has 2 daughters and 1 son with no major medical problems. Medications and Allergies Home Medications Medication Instructions Recorded Confirmed Type Levothyroxine Sodium [Synthroid] 200 mcg PO SUMOTUTHSA 06/06/18 10/31/18 History Multivitamins, Thera [Multivitamin 1 tab PO DAILY 06/06/18 10/31/18 History (formulary)] Aspirin EC [Ecotrin Low Dose] 81 mg PO DAILY 10/31/18 10/31/18 History Calcium Carbonate [Calcium] 600 mg PO DAILY 10/31/18 10/31/18 History Cholecalciferol [Vitamin D3 (25 1,000 unit PO DAILY 10/31/18 10/31/18 History Mcg = 1000 Iu)] Fish Oil/Dha/Epa [Fish Oil 1,200 1 cap PO DAILY 10/31/18 10/31/18 History mg Fish Oil] Levothyroxine Sodium [Synthroid] 100 mcg PO WEFR 10/31/18 10/31/18 History Vitamin A 8,000 unit PO DAILY 10/31/18 10/31/18 History Vitamin B Complex 1 cap PO DAILY 10/31/18 10/31/18 History Allergies Allergy/AdvReac Type Severity Reaction Status Date / Time Sulfa (Sulfonamide Allergy Rash/Hives Verified 10/31/18 17:01 Antibiotics) Physical Exam Vitals: Vital Signs Temp Pulse Pulse Resp BP BP Pulse Ox 11/01/18 12:10 65 18 106/64 96 11/01/18 08:30 97.1 F L 74 18 105/57 100 11/01/18 05:47 70 90/57 11/01/18 04:00 70 15 11/01/18 03:27 96/60 11/01/18 03:13 82/43 11/01/18 03:04 89/58 11/01/18 02:58 61 15 76/39 95 10/31/18 23:48 97.8 F 55 L 15 100/57 96 10/31/18 21:09 98.5 F 80 16 123/74 95 10/31/18 20:56 98.2 F 71 16 118/80 98 10/31/18 20:00 78 11 L 119/73 96 10/31/18 19:00 98.6 F 80 18 108/68 10/31/18 18:00 85 19 130/87 10/31/18 17:50 93 20 131/71 10/31/18 17:40 90 17 142/104 10/31/18 17:30 92 18 86/44 10/31/18 17:20 87 15 98/54 99 10/31/18 17:10 91 10/31/18 17:00 89 16 105/59 95 10/31/18 16:55 85 16 105/59 95 10/31/18 16:54 89 18 79/59 97 10/31/18 16:40 165 H 18 62/41 97 10/31/18 16:30 160 H 17 94/78 94 L 10/31/18 16:20 16 94/78 94 L 10/31/18 16:10 152 H 10 L 141/88 93 L 10/31/18 16:05 93 L 10/31/18 16:00 168 H 10/31/18 15:41 98.1 F 168 H 18 153/73 97 Intake and Output 10/31/18 11/01/18 11/01/18 22:59 06:59 14:59 Intake Total 15.392 462 Output Total 600 Balance 15.392 -138 Intake: Intake, IV Titration 15.392 Amount Heparin Sod,Pork in 0.45% 15.392 NaCl 25,000 unit In 0.45 % NaCl 1 250ml.bag @ 12 UNITS/KG/HR 9.144 mls/hr IV .Q24H [facility] Rx#: [id number] Oral 462 Output: Urine 600 Other: Voiding Method Toilet # Voids 1 Weight 76.204 kg 76.8 kg - Constitutional General appearance: cooperative, no acute distress - EENT Eyes: anicteric sclerae, EOMI, PERRLA, dentition normal, normal appearance ENT: NA/AT, normal oropharynx - Neck Neck: normal ROM - Respiratory Respiratory: bilateral: CTA, negative: diminished, dullness, rales - Cardiovascular Rhythm: regular Heart sounds: normal: S1, S2 Abnormal Heart Sounds: no systolic murmur, no diastolic murmur, no rub, no S3 Gallop, no S4 Gallop, no click, no other - Gastrointestinal General gastrointestinal: normal bowel sounds, soft - Integumentary Integumentary: decreased turgor, normal - Neurologic Neurologic: CNII-XII intact - Musculoskeletal Musculoskeletal: gait normal, strength equal bilaterally - Psychiatric Psychiatric: A&O x's 3, appropriate affect, intact judgment & insight Results CBC & Chem 7: 10/31/18 16:30 10/31/18 16:30 Labs: Abnormal Lab Results - Last 24 Hours (Table) 10/31/18 10/31/18 10/31/18 Range/Units 16:30 16:30 23:42 Lymphocytes # 0.7 L (1.0-4.8) k/uL APTT 38.4 H (22.0-30.0) sec Chloride 108 H (98-107) mmol/L Creatinine 0.50 L (0.52-1.04) mg/dL Glucose 117 H (74-99) mg/dL TSH 0.192 L (0.465-4.680) mIU/L 11/01/18 Range/Units 07:04 Lymphocytes # (1.0-4.8) k/uL APTT 53.6 H (22.0-30.0) sec Chloride (98-107) mmol/L Creatinine (0.52-1.04) mg/dL Glucose (74-99) mg/dL TSH (0.465-4.680) mIU/L Thrombosis Risk Factor Assmnt - DVT/VTE Prophylaxis DVT/VTE Prophylaxis: Pharmacologic Prophylaxis ordered - Choose All That Apply Any of the Below Risk Factors Present?: Yes Each Factor Represents 1 point: Obesity (BMI >25) Each Risk Factor Represents 2 Points: Age 61-74 years Other congenital or acquired thrombophilia - If yes, enter type in comment: No Thrombosis Risk Factor Assessment Total Risk Factor Score: 3 Thrombosis Risk Factor Assessment Level: Moderate Risk Assessment and Plan Plan: 1. New onset atrial flutter with twist 1 conduction, currently converted to sinus rhythm after Cardizem initiating dose without bolus, patient is given IV heparin, and transition to eliquis 5 mg twice a day for which the co-pay is acceptable the patient at under $9, triggers were discussed to the patient, patient is seen by cardiology, and would be followed as an outpatient, echocardiogram was done and is currently pending TSH is slightly suppressed, recommendation to decrease the levothyroxine charts to [id number] of 2, no contraindication to anticoagulation at this time patient cautioned on nsaid uses, alcohol and caffeine 2. Hypothyroidism for which she takes 200 g Saturday 5 days a week, and 100 g 2 days a week on Saturday and Saturday, TSH suppressed at 0.19, with current total dose of 1200 g for 7 days, with a going to decrease the dose to 200 g daily except 200 g 4 days a week, and 100 g 2 days a week Saturday TSH to be repeated in 6 weeks 3. History of thyroidectomy with irradiation with iodine, denies any history of thyroid cancer 4. Osteoarthritis 5. Recent hammertoe surgery left total first and second, negative for d-dimer 6. DVT prophylaxis, adequate started for long-term anticoagulation for A. fib, Expected discharge in 24 hours, depending on recurrence of a flutter, and bradycardia while on beta jamila
[2018-11-02] MEDS: LEVOTHYROXINE 100 MCG TAB PO SCH (06:11)
[2018-11-02] MEDS: MULTIVITAMINS, THERA 1 EACH TAB PO SCH (08:15)
[2018-11-02] MEDS: CALCIUM CARBONATE 500 MG CHEWABLE PO SCH (08:15)
[2018-11-02] MEDS: ATENOLOL 25 MG TAB PO SCH (08:15)
[2018-11-02] MEDS: CHOLECALCIFEROL 1,000 UNIT TAB PO SCH (08:15)
[2018-11-02] MEDS: APIXABAN 5 MG TAB PO SCH (08:15)
[2018-11-02 08:21] VITALS: TEMP 97.1
[2018-11-02] MEDS: SODIUM CHLORIDE 0.9% 1,000 ML IV SCH (09:08)
--- NOTE | 2018-11-02 10:24 | P.PN ---
Subjective Progress Note Date: 11/02/18 This is a pleasant 73-year-old female with no prior documented history of hypertension, nondiabetic, borderline hyperlipidemia, nonsmoker, who states that she drinks one glass of wine per day, has 2 cups of coffee per day, was at a routine office visit with Dr. Salazar and it was noted that her heart was beating irregular and fast. For this reason the patient was a mid-to the hospital for further evaluation and treatment. According to the patient, she does notice occasionally a fluttering feeling in her chest, her breathing overall has been stable, she denies any dizziness or lightheadedness, no chest discomfort. Her initial EKG on presentation here showed typical atrial flutter with 2 to one conduction, subsequent to that patient did convert to normal sinus rhythm. At the time of my examination this morning she continues to be in a normal sinus rhythm with occasional PACs. Patient has had her thyroid removed in the past and takes medication for this, she also has had surgery on her foot in June on the left foot, and history of right knee replacement 8 years ago. Chest x-ray on presentation here did not reveal any acute radiographic process, mild to moderate enlargement of the cardiac silhouette was noted. Blood pressure on arrival here 150/70 with a heart rate of 170, afebrile, 97% on room air. White blood cell count is normal, hemoglobin 14.3, platelet count 213. D- dimer negative, sodium 140, potassium 4.4, BUN 15 and creatinine 0.5, magnesium 2.1. Troponin 0.012, BNP level 265., TSH level 0.192. At the time of my examination this morning, patient feels well, she continues at this time to be on IV heparin drip. She was given a bolus of IV Cardizem on arrival here. 11/02/2018 Patient was seen and examined this morning, continue continues to be in a normal sinus rhythm. Echocardiogram with Doppler study was performed which revealed a normal left ventricular systolic function. Her heart rate this morning is in the 60s, blood pressure 115/60. Objective - Vital Signs Vital signs: Vital Signs Temp 97.1 F L 11/02/18 08:15 Pulse 71 11/02/18 08:15 Resp 18 11/02/18 08:15 BP 126/73 11/02/18 08:15 Pulse Ox 95 11/02/18 08:15 Intake & Output 11/01/18 11/02/18 11/02/18 18:59 06:59 18:59 Intake Total 702 240 Output Total 600 Balance 102 240 Weight 76.6 kg Intake: Oral 702 240 Output: Urine 600 Other: Voiding Method Toilet # Voids 3 - Exam PHYSICAL EXAMINATION: GENERAL: 73-year-old female in no acute distress at the time of my examination HEENT: Head is atraumatic, normocephalic. Pupils equal, round. Sclera anicteric. Conjunctiva are clear. Mucous membranes of the mouth are moist. Neck is supple. There is no elevated jugular venous pressure. No carotid bruit is heard. HEART EXAMINATION: Heart S1, S2 normal. No murmur or gallop heard. CHEST EXAMINATION: Lungs are clear to auscultation and precussion. No chest wall tenderness is noted on palpation or with deep breathing. ABDOMEN: Soft, nontender. Bowel sounds are heard. No organomegaly noted. EXTREMITIES: 2+ peripheral pulses with no evidence of peripheral edema and no calf tenderness noted. NEUROLOGIC patient is awake, alert and oriented 3 . - Labs CBC & Chem 7: 10/31/18 16:30 10/31/18 16:30 Assessment and Plan Plan: Assessment and plan #1 typical atrial flutter with 2 to one conduction, currently in normal sinus rhythm #2 history of thyroid being removed several years ago, patient does take Synthroid at home. Current TSH level 0.19. #3 cardiac risk factors negative for hypertension, no diabetes, borderline hyperlipidemia, nonsmoker Plan Patient may be able to be discharged home today from our perspective. The echocardiogram with Doppler study was performed and reveals a normal left ventricular systolic function. The patient will be discharged home on Eliquis 5 mg one tablet by mouth twice a day along with atenolol. Follow-up appointment with Dr. Gibbs in the office. DNP note has been reviewed, I agree with a documented findings and plan of care. Patient was seen and examined.
[2018-11-02 12:13] VITALS: BP 116/69; PULSE 63; RESP 17
[2018-11-05] MEDS ORDERED: LEVOTHYROXINE 100 MCG TAB PO SCH (06:30)
== END 2018-11-02 15:42 | disposition home or self-care (01) | DRG 310 ==
LOC: EC 15:34 → 3SCARD 19:56
PROVIDERS: ADMIT Internal Medicine; ATTEND Internal Medicine
DX: I48.3 Typical atrial flutter (principal); E86.0 Dehydration; I95.9 Hypotension, unspecified; E89.0 Postprocedural hypothyroidism; M19.90 Unspecified osteoarthritis, unspecified site; Z79.82 Long term (current) use of aspirin; Z79.890 Hormone replacement therapy; Z90.710 Acquired absence of both cervix and uterus; Z96.651 Presence of right artificial knee joint; Z88.2 Allergy status to sulfonamides; Z98.42 Cataract extraction status, left eye; Z98.41 Cataract extraction status, right eye; Z96.1 Presence of intraocular lens; Z92.3 Personal history of irradiation
CPT/HCPCS: 36415; 71046; 80053; 82550; 83735; 83880; 84443; 84484; 85025; 85379; 85610; 85730; 93005; 93306; 96365; 96366; 96376; 99291

== ENCOUNTER → 2019-05-28 | Outpatient (CLI) | payer MEDICARE ==
[2019-05-28 13:39] LABS: HCT 42.5 % (34.0-46.0); HGB 13.5 gm/dL (11.4-16.0); MCH 28.2 pg (25.0-35.0); MCHC 31.6 g/dL (31.0-37.0); MCV 89.1 fL (80.0-100.0); Mean Platelet Volume 8.3; Platelet Count 246 k/uL (150-450); RBC 4.77 m/uL (3.80-5.40); RDW 12.9 % (11.5-15.5); WBC 4.7 k/uL (3.8-10.6)
[2019-05-28 15:49] LABS: Erythrocyte Sedimentation Rate 15 mm/hr (0-20)
[2019-05-28 20:44] LABS: Gliadin AB IgA, Deaminated NEGATIVE (NEGATIVE); Gliadin AB IgA, Unit <0.2 U/mL; Gliadin AB IgG, Deaminated NEGATIVE (NEGATIVE)
== END | disposition home or self-care (01) ==
LOC: LABWHC1 12:33
PROVIDERS: ATTEND Nurse Practitioner
DX: R19.7 Diarrhea, unspecified (principal)
CPT/HCPCS: 36415; 83516; 83993; 85027; 85652; 86140

== ENCOUNTER → 2019-11-06 | Day surgery (SDC) | payer MEDICARE ==
[2019-11-03 16:04] VITALS: BMI 28.3
[~2019-11-06] MED LIST changes: -DEXAMETHASONE SOD PHOSPHATE 10 MG/ML 1 ML VIAL IV ONE; -HYDROmorphone 0.5 MG/0.5 ML SYRINGE IVP PRN; +LACTATED RINGERS 1,000 ML IV ONE; +LACTATED RINGERS 1,000 ML IV SCH; +LIDOCAINE 1% (10MG/ML) FOR IV START INTRADERMA PRN; -MIDAZOLAM 2 MG/2 ML VIAL IV PRN; -ONDANSETRON 4 MG/2 ML VIAL IVP ONE; +PROPOFOL 10 MG/ML 20 ML VIAL IV ONE; -ceFAZolin IN SWFI 2 GM/20 ML SYRINGE IVP ONE
[2019-11-06 09:44] VITALS: RESP 16; TEMP 98.4
--- NOTE | 2019-11-06 10:24 | P.PCN ---
Date of Procedure: 11/06/19 Procedure(s) Performed: BRIEF HISTORY: Patient is a 74-year-old pleasant white femalecheduled for an elective colonoscopy as a part of evaluation of chronic diarrhea for the last several several months duration. PROCEDURE PERFORMED: Colonoscopy with random biopsies . PREOPERATIVE DIAGNOSIS: chronic diarrhea of several months durationIV sedation per Anesthesia. PROCEDURE: After informed consent was obtained, the patient, was brought into the endoscopy unit. IV sedation was administered by Anesthesia under continuous monitoring. Digital rectal examination was normal. Initially the Olympus CF-160 flexible video colonoscope was then inserted in the rectum, gradually advanced into the cecum without any difficulty. Careful examination was performed as the scope was gradually being withdrawn. Ileocecal valve and the appendiceal orifice were visualized and appeared normal. Prep was excellent. Mucosa of the cecum, ascending colon, transverse colon, descending colon, sigmoid colon, and rectum appeared normal. Scattered sigmoid diverticulosis seen. Random biopsies were done from ascending and descending colon to rule out microscopic/collagenous colitis. Retroflexion was performed in the rectum and no lesions were seen. The patient tolerated the procedure well. IMPRESSION: Normal-appearing colon from rectum to cecum no evidence of colitis or colorectal neoplasia . Scattered sigmoidal diverticulosis RECOMMENDATIONS: Findings of this examination were discussed with the patient as well as her family. She was advised to follow with the biopsy results. She'll be seen in office in 2 weeks..
[2019-11-06 10:41] VITALS: BP 109/73; PULSE 65
== END ==
LOC: ORWHC2ENDO 09:07
PROVIDERS: ATTEND Internal Medicine Gastroenterology
DX: K52.9 Noninfective gastroenteritis and colitis, unspecified (principal); K57.30 Diverticulosis of large intestine without perforation or abscess without bleeding; I48.91 Unspecified atrial fibrillation; E89.0 Postprocedural hypothyroidism; M26.609 Unspecified temporomandibular joint disorder, unspecified side; Z88.2 Allergy status to sulfonamides; Z79.899 Other long term (current) drug therapy; Z79.01 Long term (current) use of anticoagulants; Z79.890 Hormone replacement therapy; Z90.710 Acquired absence of both cervix and uterus
CPT/HCPCS: 88305; 45380; J2704

== ENCOUNTER 2022-07-06 09:17 | Day surgery (SDC) | payer MEDICARE ==
[~2022-07-06 09:17] MED LIST changes: -LACTATED RINGERS 1,000 ML IV ONE; +ONDANSETRON 4 MG/2 ML VIAL IVP PRN; -PROPOFOL 10 MG/ML 20 ML VIAL IV ONE
[2022-07-06 10:16] VITALS: RESP 16; TEMP 98.1
[2022-07-06] MEDS ORDERED: PROPOFOL 10 MG/ML 20 ML VIAL IV ONE (11:33)
--- NOTE | 2022-07-06 11:52 | P.PCN ---
Date of Procedure: 07/06/22 Procedure(s) Performed: BRIEF HISTORY: Patient is a 77-year-old pleasant white female scheduled for an elective colonoscopy as a part of evaluation of change in bowel habits, progressive weight loss of 20 pounds in the last 1 year duration. PROCEDURE PERFORMED: Colonoscopy with random biopsies. PREOPERATIVE DIAGNOSIS: Chronic diarrhea and weight loss. IV sedation per Anesthesia. PROCEDURE: After informed consent was obtained, the patient, was brought into the endoscopy unit. IV sedation was administered by Anesthesia under continuous monitoring. Digital rectal examination was normal. Initially the Olympus CF-160 flexible video colonoscope was then inserted in the rectum, gradually advanced i nto the cecum without any difficulty. Careful examination was performed as the scope was gradually being withdrawn. Ileocecal valve and the appendiceal orifice were visualized and appeared normal. Prep was excellent. Terminal ileum was intubated and 20 cm visualized and appeared normal. Mucosa of the cecum, ascending colon, transverse colon, descending colon, sigmoid colon, and rectum appeared normal. In the sigmoid diverticulosis seen. Random biopsies were done from ascending and descending colon to rule out microscopic/collagenous colitis. Retroflexion was performed in the rectum and no lesions were seen. The patient tolerated the procedure well. IMPRESSION: Normal-appearing colon from rectum to cecum no evidence of colorectal neoplasia. Scattered sigmoid diverticulosis. RECOMMENDATIONS: Findings of this examination were discussed with the patient as well as her family. She was advised to follow with the biopsy results. Use [id number] Imodium as needed for the chronic diarrhea..
[2022-07-06 12:19] VITALS: BP 128/69; PULSE 66
== END 2022-07-06 12:43 | disposition home or self-care (01) ==
LOC: ORWHC2ENDO 09:17
PROVIDERS: ATTEND Internal Medicine Gastroenterology
DX: K52.9 Noninfective gastroenteritis and colitis, unspecified (principal); K57.30 Diverticulosis of large intestine without perforation or abscess without bleeding; I10 Essential (primary) hypertension; I48.91 Unspecified atrial fibrillation; E03.9 Hypothyroidism, unspecified; Z79.01 Long term (current) use of anticoagulants; Z79.890 Hormone replacement therapy; Z79.899 Other long term (current) drug therapy; Z88.2 Allergy status to sulfonamides
CPT/HCPCS: 88305; 45380; J2704